=== PATIENT | female | born 1960 | race African-American/Black ===

== ENCOUNTER 2017-07-21 11:26 | Emergency (ER) | payer MEDICAID ==
--- NOTE | 2017-07-21 11:44 | CPEKG ---
Heart Rate: 106 RR Interval: 566 P-R Interval: 148 QRSD Interval: 78 QT Interval: 344 QTC Interval: 457 P [place]: 32 QRS [place]: 21 T Wave [place]: 17 EKG Severity - BORDERLINE ECG - EKG Impression: SINUS TACHYCARDIA EKG Impression: PROBABLE LEFT ATRIAL ABNORMALITY Electronically Signed By: Anshu Christensen 21-Jul-2017 14:37:57
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
[2017-07-21] MEDS ORDERED: levETIRAcetam 500 MG TAB PO ONE (12:46)
[2017-07-21] MEDS ORDERED: IBUPROFEN 600 MG TAB PO ONE (12:47)
[2017-07-21 12:54] LABS: PLATELET COUNT 224 10^3/uL (150-400)
[2017-07-21 14:22] VITALS: BP 150/98
--- NOTE | 2017-07-21 15:16 | ASMTCMCOM ---
CM Note CM Note Notes: [employer] called for Medicaid cab-on hold X 10 min, then disconnected. [employer] taxi voucher #[id number] to return patient to designated address for [facility] in [place]. I spoke with Mayi at [facility] to confirm patient's return and correct address for vacuum truck driver. Patient escorted to ER entrance and voucher provided to truck driver rubbish collector upon arrival Date Signed: 07/21/2017 03:15 PM Electronically Signed By:Carolyne Stewart RN
== END 2017-07-21 14:51 | disposition home or self-care (01) ==
DX: G40.909 Epilepsy, unspecified, not intractable, without status epilepticus (principal); I10 Essential (primary) hypertension

== ENCOUNTER 2017-08-08 05:37 | Emergency (ER) | payer MEDICAID ==
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
[2017-08-08] MEDS ORDERED: LORazepam 2 MG/ML INJ IVP ONE (05:50)
[2017-08-08] MEDS ORDERED: HALOPERIDOL LACT 5 MG/ML INJ ONE (06:05)
[2017-08-08] MEDS ORDERED: HALOPERIDOL LACT 5 MG/ML INJ IM ONE (06:05)
[2017-08-08] MEDS ORDERED: LORazepam 1 MG TAB PO ONE ×2 (06:35→18:30)
[2017-08-08 09:01] LABS: PLATELET COUNT 110 10^3/uL (150-400)
[2017-08-08] MEDS ORDERED: levETIRAcetam 500 MG TAB PO ONE (17:11)
[2017-08-08 17:26] VITALS: BP 135/95
== END 2017-08-08 20:55 | disposition home or self-care (01) ==
LOC: EDUNIT#
DX: R45.6 Violent behavior (principal); R45.4 Irritability and anger; I10 Essential (primary) hypertension
CPT/HCPCS: 80305; G0480; J1630

== ENCOUNTER 2017-08-22 00:27 | Emergency (ER) | payer MEDICAID, OTHER ==
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
[2017-08-22 00:57] LABS: PLATELET COUNT 330 10^3/uL (150-400)
[2017-08-22] MEDS ORDERED: amLODIPine BESYLATE 5 MG TAB PO ONE (07:29)
[2017-08-22] MEDS ORDERED: levETIRAcetam 500 MG TAB PO ONE (07:29)
[2017-08-22] MEDS ORDERED: ATORVASTATIN CALCIUM 10 MG TAB PO ONE (07:29)
[2017-08-22 20:07] VITALS: BP 128/90
== END 2017-08-22 20:07 | disposition home or self-care (01) ==
DX: R45.851 Suicidal ideations (principal); F10.921 Alcohol use, unspecified with intoxication delirium; I10 Essential (primary) hypertension; Z59.0 Homelessness
CPT/HCPCS: 80305; G0480

== ENCOUNTER 2017-10-10 19:46 | Emergency (ER) | payer OTHER ==
[2017-10-10 19:52] VITALS: BP 102/85
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
== END 2017-10-10 20:31 | disposition home or self-care (01) ==
LOC: EDUNIT#
DX: F10.920 Alcohol use, unspecified with intoxication, uncomplicated (principal); Y90.9 Presence of alcohol in blood, level not specified

== ENCOUNTER 2017-10-11 09:46 | Emergency (ER) | payer MEDICAID ==
[2017-10-11 09:53] VITALS: BP 126/83
== END 2017-10-11 12:00 | disposition left against medical advice (07) ==
LOC: EDUNIT#
DX: Z53.21 Procedure and treatment not carried out due to patient leaving prior to being seen by health care provider (principal)

== ENCOUNTER 2017-11-24 18:37 | Emergency (ER) | payer MEDICAID ==
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
[2017-11-24 19:38] LABS: PLATELET COUNT 211 10^3/uL (150-400)
[2017-11-24 20:16] VITALS: BP 133/78
--- NOTE | 2017-11-24 23:02 | CPEKG ---
Test Reason : OPEN Blood Pressure : / mmHG Vent. Rate : 086 BPM Atrial Rate : 086 BPM P-R Int : 165 ms QRS Dur : 085 ms QT Int : 380 ms P-R-T Axes : 053 030 020 degrees QTc Int : 455 ms Sinus rhythm Confirmed by Shira Leigh ([id number]) on 11/24/2017 11:02:44 PM Referred By: Confirmed By:Shira Leigh
== END 2017-11-24 20:16 | disposition home or self-care (01) ==
DX: R07.89 Other chest pain (principal); I10 Essential (primary) hypertension; F41.9 Anxiety disorder, unspecified; F32.9 Major depressive disorder, single episode, unspecified
CPT/HCPCS: 82435-PO; 82565-PO; 82947-PO; 84132-PO; 84295-PO; 84484-PO; 84520-PO; 85014-PO

== ENCOUNTER 2017-11-30 19:11 | Emergency (ER) | payer MEDICAID, OTHER ==
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
[2017-11-30 19:29] VITALS: BP 131/92
== END 2017-11-30 19:37 | disposition home or self-care (01) ==
LOC: EDUNIT#
DX: F10.920 Alcohol use, unspecified with intoxication, uncomplicated (principal); Z59.0 Homelessness

== ENCOUNTER 2017-12-08 22:56 | Emergency (ER) | payer MEDICAID ==
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
[2017-12-08] MEDS ORDERED: CHLORDIAZEPOXIDE 25MG PREPK#6 BTL TAKEHOME ONE (23:48)
[2017-12-09 01:55] VITALS: BP 127/70
== END 2017-12-09 00:01 | disposition home or self-care (01) ==
LOC: EDUNIT#
DX: S00.83XA Contusion of other part of head, initial encounter (principal); R04.0 Epistaxis; G40.909 Epilepsy, unspecified, not intractable, without status epilepticus; W19.XXXA Unspecified fall, initial encounter; Z59.0 Homelessness; Z87.828 Personal history of other (healed) physical injury and trauma; F10.129 Alcohol abuse with intoxication, unspecified

== ENCOUNTER → 2018-06-14 | Outpatient (CLI) | payer MEDICAID | LOC: FIMAGING 13:53 | PROVIDERS: ATTEND Nurse Practitioner Family | DX: N63.10 Unspecified lump in the right breast, unspecified quadrant (principal) ==

== ENCOUNTER 2018-07-26 12:19 | Emergency (ER) | payer MEDICAID | END 2018-07-26 13:10 | disposition home or self-care (01) ==

== ENCOUNTER 2018-07-26 14:52 | Emergency (ER) | payer MEDICAID | END 2018-07-26 16:31 | disposition home or self-care (01) ==